=== PATIENT | female | born 1940 | race Caucasian/White ===

== ENCOUNTER 2023-09-12 16:28 | Emergency (ER) | payer MEDICARE, SELFPAY ==
--- NOTE | ~2023-09-12 | XR_ITS ---
EXAM: XR hip RT 2V w AP pelvis DATE: 09/12/2023 17:49 HISTORY: FALL X 1 WEEK AGO, unable to bare weight on rt leg . COMPARISON: None available. FINDINGS: Osteopenia mineralization. No fracture or dislocation. No lytic or blastic lesion. Partial ly visualized, uncomplicated appearing left hip arthroplasty hardware. Degenerative changes in the ruma mbar spine, right hip and pubic symphysis. No erosion or periosteal change. Soft tissues within ramin l limits. IMPRESSION: No acute osseous finding in the right hip or pelvis. Reviewed, dictated and finalized at location [facility]
[2023-09-12 17:08] VITALS: BP 131/57; PULSE 71; RESP 16; TEMP 37.1; O2SAT 96
--- NOTE | 2023-09-12 17:53 | ED.FALL ---
HPI - Fall General Chief Complaint: Fall Stated Complaint: Fall Source: patient Mode of arrival: ambulatory Limitations: no limitations History of Present Illness HPI Narrative: Patient presents for evaluation of right hip pain. Pain started last Wednesday after a fall at home. She was getting something out of the refrigerator when she lost her balancing, hitting her right hip against the floor. She did not hit her head. No loss of consciousness. I was asked to come to x ray area to transfer her to a bed. That was the time of my initial evaluation. She indicates her pain is 10/10 without descriptive quality. No radicular component. She has not been taking any medication for her symptoms. She has a history of left hip replacement. She normally ambulates with a walker, which she has continued to do since her injury. She is planning on taking a trip to [place] in the near future. He daughter informed her while there she will need to be able to climb 20 steps. She was using some type of step machine this past week in order to practice for the trip. She states that seemed to exacerbate her pain. She lives at home with her and there is only one step to get into their single floor residence. Denies underlying history of osteopenia or osteoporosis. Related Data Home Medications Medication Instructions Recorded Confirmed diphenoxylate-atropine 2.5 tablet 09/12/23 mg-0.025 mg tablet losartan 50 mg tablet mg 09/12/23 Allergies Allergy/AdvReac Type Severity Reaction Status Date / Time No Known Allergies Allergy Verified 09/12/23 16:44 Review of Systems Review of Systems: CONSTITUTIONAL: Denies fever, chills, or sweats. EYES: Denies visual changes, redness, or discharge. ENT: Denies rhinorrhea, congestion, sore throat, or otalgia. CARDIOVASCULAR: Denies chest pain, palpitations, or edema. RESPIRATORY: Denies cough or dyspnea. GASTROINTESTINAL: Denies abdominal pain, nausea, vomiting, or diarrhea. GENITOURINARY: Denies dysuria or hematuria. SKIN: Denies rash or itching. MUSCULOSKELETAL: Reports right hip pain. Denies back pain or myalgia. NEUROLOGIC: Denies headache, numbness, dizziness, or weakness. PSYCHIATRIC: Denies anxiety or depression. [facility] Past Medical History Medical History Contusion of right hip Hypertension Surgical History Surgical History History of left hip replacement Family History Family History Mother Family history non-contributory Social History Social History Smoking status: Never smoker Substance use: never Living arrangements: with family Gender identity (if verbalized by the patient): Female Sexual Orientation (if Verbalized by the Patient): Straight or Heterosexual Spiritual care concerns: No Exam Narrative: GENERAL: Well-appearing, well-nourished, and in no acute distress. HEAD: Normocephalic, atraumatic. EYES: PERRLA and EOMI. ENT: Nares clear, no rhinorrhea or epistaxis. Mucous membranes moist. Oropharynx without tonsillar hypertrophy exudate or other lesions. Bilateral TMs pearly saha nonbulging NECK: Supple. No adenopathy or masses. No carotid bruits or JVD CHEST: Clear to auscultation. No respiratory distress. No wheezes rales or rhonchi HEART: Regular rate and rhythm. No murmur heard. Normal peripheral pulses. ABDOMEN: Soft, nontender, nondistended, normal active bowel sounds. EXTREMITIES: There is tenderness in the posterior aspect of the proximal right femur. Decreased range of motion of the right hip secondary to pain SKIN: Warm, dry, no rash. NEURO: No focal deficits. Alert and oriented x3. PSYCH: Normal mood and affect. Course Course Emergency Course: this is an 83-year-old femal
== END 2023-09-12 18:35 | disposition home or self-care (01) ==
PROVIDERS: Emergency Provider Nurse Practitioner
DX: S70.01XA Contusion of right hip, initial encounter (principal); W19.XXXA Unspecified fall, initial encounter; I10 Essential (primary) hypertension; Z96.642 Presence of left artificial hip joint
CPT/HCPCS: 73502; 99213; G0463